=== PATIENT | female | born 1950 | race African-American/Black ===

== ENCOUNTER 2022-07-12 07:26 | Day surgery (SDC) | payer OTHER ==
[2022-07-08 09:48] VITALS: BMI 31.2
[2022-07-12] MEDS ORDERED: ceFAZolin SODIUM 1 GM VIAL ONE ×2 (08:32→10:11)
[2022-07-12] MEDS ORDERED: VANCOMYCIN 1,000 MG VIAL (RESTRICTED TO ID ONLY) ONE (08:32)
[2022-07-12] MEDS: CELECOXIB 200 MG CAPSULE PO ONE ×2 (08:43→16:49)
[2022-07-12] MEDS ORDERED: BUPIVACAINE HCL/PF 0.5% (5MG/ML) 10 ML VIAL ONE (09:28)
[2022-07-12] MEDS ORDERED: MIDAZOLAM HCL 2 MG/2 ML SINGLE DOSE VIAL ONE (09:28)
[2022-07-12] MEDS ORDERED: BUPIVACAINE LIPOSOME/PF (EXPAREL) 266 MG/20 ML VIAL ONE (09:28)
[2022-07-12] MEDS ORDERED: FENTANYL CITRATE/PF 50 MCG/ML VIAL ONE (09:28)
[2022-07-12] MEDS ORDERED: TRANEXAMIC ACID 1000 MG/10 ML VIAL IVPUSH ONE (10:00)
[2022-07-12] MEDS ORDERED: CEFAZOLIN 2 GM in DEXTROSE 5%-WATER - 50 ML IVPB ONE (10:00)
[2022-07-12] MEDS ORDERED: TRANEXAMIC ACID 1000 MG/10 ML VIAL ONE (10:11)
[2022-07-12] MEDS ORDERED: DEXAMETHASONE SOD PHOSPHATE 4 MG/1 ML VIAL ONE (10:11)
[2022-07-12] MEDS ORDERED: ONDANSETRON 4 MG/2 ML VIAL ONE (10:11)
[2022-07-12] MEDS ORDERED: SENNOSIDES 8.6MG TABLET (FP) PO PRN (10:13)
[2022-07-12] MEDS ORDERED: ONDANSETRON 4 MG/2 ML VIAL IVPUSH PRN (10:14)
[2022-07-12] MEDS ORDERED: LACTATED RINGERS SOLUTION 1,000 ML IV SCH (10:15)
[2022-07-12] MEDS ORDERED: PHENYLEPHRINE HCL 10 MG/1 ML SINGLE DOSE VIAL ONE (10:18)
[2022-07-12] MEDS ORDERED: oxyCODONE HCL 5 MG TABLET PO PRN ×2 (12:55)
[2022-07-12] MEDS ORDERED: ACETAMINOPHEN 1000 MG/100 ML BAG IVPB ONE (12:55)
[2022-07-12] MEDS ORDERED: ACETAMINOPHEN INJECTION 100 ML IVPB ONE (13:24)
[2022-07-12] MEDS ORDERED: KETOROLAC TROMETHAMINE 30 MG/1 ML VIAL ONE (13:27)
[2022-07-12] MEDS: KETOROLAC TROMETHAMINE 30 MG/1 ML VIAL IVPUSH SCH (13:40)
[2022-07-12 15:27] VITALS: RESP 18
[2022-07-12] MEDS: CEFAZOLIN SODIUM 2 GM in DEXTROSE 5%-WATER 100 ML IVPB SCH (17:28)
[2022-07-12] MEDS: ACETAMINOPHEN 500 MG TABLET (FP) PO SCH (21:37)
[2022-07-12] MEDS: oxyCODONE HCL 10 MG SUSTAINED ACTING TABLET PO SCH (21:38)
[2022-07-12] MEDS: ATORVASTATIN CA 10 MG TABLET (FP) PO SCH (21:38)
[2022-07-13] MEDS: CEFAZOLIN SODIUM 2 GM in DEXTROSE 5%-WATER 100 ML IVPB SCH (01:37)
[2022-07-13] MEDS: ACETAMINOPHEN 500 MG TABLET (FP) PO SCH ×4 (03:47→21:15)
[2022-07-13] MEDS: KETOROLAC TROMETHAMINE 30 MG/1 ML VIAL IVPUSH SCH (07:09)
[2022-07-13 08:19] LABS: HEMOGLOBIN 9.3 G/dL (10.7-15.3); MCH 30.5 pg (25.7-33.7); MCHC 34.4 g/dl (32.0-36.0); MEAN CELL VOLUME 88.5 fl (80-96); MEAN PLT VOLUME 8.6 fl (7.5-11.1); PLATELET COUNT 188.3 10^3/uL (134-434); RBC 3.05 10^6/uL (3.60-5.2); RDW 16.3 % (11.6-15.6); WHITE BLOOD COUNT 11.9 10^3/uL (4.0-10.8)
[2022-07-13] MEDS: ASPIRIN 325 MG TABLET PO SCH (08:44)
[2022-07-13] MEDS: MULTIVITAMINS (DAILY MVI) TABLET (FP) PO SCH (09:35)
[2022-07-13] MEDS: HYDROCHLOROTHIAZIDE 25 MG TABLET (FP) PO SCH (09:35)
[2022-07-13] MEDS: oxyCODONE HCL 10 MG SUSTAINED ACTING TABLET PO SCH ×2 (09:35→21:17)
[2022-07-13] MEDS: PANTOPRAZOLE 40 MG TABLET PO SCH (09:35)
[2022-07-13] MEDS: ENALAPRIL MALEATE 10 MG TABLET PO SCH (09:37)
[2022-07-13] MEDS: ATORVASTATIN CA 10 MG TABLET (FP) PO SCH (21:16)
[2022-07-14] MEDS: ACETAMINOPHEN 500 MG TABLET (FP) PO SCH ×2 (08:47→08:48)
[2022-07-14] MEDS: ASPIRIN 325 MG TABLET PO SCH (08:47)
[2022-07-14 09:34] VITALS: PULSE 83; TEMP 98.5
[2022-07-14 09:44] VITALS: BP 122/58
[2022-07-14] MEDS: HYDROCHLOROTHIAZIDE 25 MG TABLET (FP) PO SCH (09:44)
[2022-07-14] MEDS: MULTIVITAMINS (DAILY MVI) TABLET (FP) PO SCH (09:44)
[2022-07-14] MEDS: PANTOPRAZOLE 40 MG TABLET PO SCH (09:44)
[2022-07-14] MEDS: oxyCODONE HCL 10 MG SUSTAINED ACTING TABLET PO SCH (09:45)
[2022-07-14] MEDS: ENALAPRIL MALEATE 10 MG TABLET PO SCH (09:48)
== END 2022-07-14 10:15 | disposition home health service (06) ==
LOC: FASUSAT 07:26 → FM/S 13:53 → FASUSAT 07-13 11:05 → FM/S 07-13 11:05 → FASUSAT 07-14 10:15
PROVIDERS: ATTEND Orthopaedic Surgery
PROC: 8E0YXBZ Computer Assisted Procedure of Lower Extremity (ICD-10-PCS; 2022-07-12)
PROC: 8E0Y0CZ Robotic Assisted Procedure of Lower Extremity, Open Approach (ICD-10-PCS; 2022-07-12)
PROC: 0SRD0J9 Replacement of Left Knee Joint with Synthetic Substitute, Cemented, Open Approach (ICD-10-PCS; principal; 2022-07-12 10:28)
DX: M17.12 Unilateral primary osteoarthritis, left knee (principal)
CPT/HCPCS: 20985; 27447; C1776; S2900; 36415; 73560-TC-LT-FY; 85027; 88305-TC; 88311-TC; 94760; 97010-GP; 97116-GP; 97162-GP; C1713; C1889